=== PATIENT | female | born 1985 | race Caucasian/White ===

== ENCOUNTER 2019-08-08 05:21 | Inpatient (IN) ==
[2019-08-03 12:22] LABS: Basophils % 0.2 % (0.0-0.8); Eosinophils % 0.2 % (0.00-10.9); Hematocrit 45.9 VOL% (35.7-47.0); Hemoglobin 15.8 GM/DL (12.0-16.0); Immature Granulocytes % 0.4 %; Immature Granulocytes Absolute 0.05 #; Lymphocytes # 1.3 10*3/uL (1.4-4.0); Lymphocytes % 10.3 % (21.3-54.2); Mean Corpuscular HGB Conc 34.4 GM/DL (32-36); Mean Corpuscular Volume 96.6 FL (87-102); Mean Platelet Volume 9.8 FL (9.6-12.0); Monocytes % 3.2 % (1.7-12.7); Neutrophils % 85.7 % (38.7-73.9); Platelet Count 349 T/CUMM (130-400); Red Blood Count 4.75 MC/CUMM (3.8-5.5); Red Cell Distribution Width 13.6 % (9.3-17.3); White Blood Count 12.6 T/CUMM (4-12)
[2019-08-03 12:32] LABS: INR 0.9; Partial Thromboplastin Time 27.7 SECS (20.8-36.0)
[2019-08-03 12:38] LABS: Calcium 9.3 MG/DL (8.5-10.1); Osmolality,Calculated 276.4 MOS/KG (273-304)
[2019-08-03 13:01] LABS: Apearance,Urine CLEAR (Clear); Bilirubin,Urine Negative (Negative); Blood, Urine Negative (Negative); Glucose,Urine (UA) Negative (Negative); Ketones,Urine Negative (Negative); Nitrite,Urine Negative (Negative); Protein,Urine Negative; RBC,Urine <1 /HPF (0-4); Squamous Epithelial Cell,Urine Occasional /HPF (0-10); Urine Color Yellow (Yellow); Urine Specific Gravity 1.012 (1.001-1.035); Urine Urobilinogen < 2.0 EU/DL (0.2-1.0); WBC,Urine 3 /HPF (0-6)
[2019-08-08] MEDS ORDERED: DIAZEPAM 5 MG TABLET PO ONE (06:00)
[2019-08-08] MEDS ORDERED: GABAPENTIN 400 MG CAPSULE PO ONE (06:00)
[2019-08-08] MEDS ORDERED: FAMOTIDINE 20 MG TABLET PO ONE (06:00)
[2019-08-08] MEDS ORDERED: ceFAZolin 1,000 MG in SYRINGE 1 EACH IV ONE (06:00)
[2019-08-08] MEDS ORDERED: ceFAZolin 1,000 MG VIAL ONE (06:02)
[2019-08-08] MEDS ORDERED: FAMOTIDINE 20 MG TABLET ONE (06:23)
[2019-08-08] MEDS ORDERED: DIAZEPAM 5 MG TABLET ONE (06:23)
[2019-08-08] MEDS ORDERED: LACTATED RINGERS 1,000 ML IV SCH ×2 (06:30→08:30)
[2019-08-08] MEDS ORDERED: BENZOCAINE/MENTHOL LOZENGE 18/BOX PO PRN (08:21)
[2019-08-08] MEDS ORDERED: IBUPROFEN 800 MG TABLET PO PRN (08:21)
[2019-08-08] MEDS ORDERED: MAGNESIUM HYDROXIDE SUSP 30 ML UDCUP PO PRN (08:21)
[2019-08-08] MEDS ORDERED: ONDANSETRON 4 MG/2 ML VIAL IV PRN ×2 (08:21→08:37)
[2019-08-08] MEDS ORDERED: DOCUSATE SODIUM 100 MG CAPSULE PO PRN (08:21)
[2019-08-08] MEDS ORDERED: ACETAMINOPHEN 325 MG TABLET PO PRN (08:21)
[2019-08-08] MEDS ORDERED: BISACODYL 10 MG SUPP RECTAL PRN (08:21)
[2019-08-08] MEDS ORDERED: HYDROmorphone 2 MG/1 ML VIAL ONE (08:36)
[2019-08-08] MEDS ORDERED: ONDANSETRON 4 MG/2 ML VIAL ONE ×2 (08:36→08:45)
[2019-08-08 08:40] LABS: Apearance,Urine CLEAR (Clear); Bilirubin,Urine Negative (Negative); Blood, Urine Negative (Negative); Glucose,Urine (UA) Negative (Negative); Ketones,Urine Negative (Negative); Mucus,Urine Occasional /LPF (Occasional); Nitrite,Urine Negative (Negative); Protein,Urine Negative; RBC,Urine 1 /HPF (0-4); Squamous Epithelial Cell,Urine Occasional /HPF (0-10); Urine Color Yellow (Yellow); Urine Specific Gravity 1.008 (1.001-1.035); Urine Urobilinogen < 2.0 EU/DL (0.2-1.0); WBC,Urine <1 /HPF (0-6)
[2019-08-08] MEDS: HYDROmorphone 2 MG/1 ML VIAL IV PRN ×2 (08:40→08:45)
[2019-08-08] MEDS ORDERED: LIDOCAINE 100 MG/5 ML SYRINGE ONE (08:44)
[2019-08-08] MEDS ORDERED: PROPOFOL 200 MG/20 ML VIAL IV ONE (08:44)
[2019-08-08] MEDS ORDERED: SEVOFLURANE 1 UNIT/15 MINUTE INH ONE (08:44)
[2019-08-08] MEDS ORDERED: NEOSTIGMINE 10 MG/10 ML VIAL ONE (08:45)
[2019-08-08] MEDS ORDERED: fentaNYL 100 MCG/2 ML VIAL ONE (08:45)
[2019-08-08] MEDS ORDERED: GLYCOPYRROLATE 0.4 MG/2 ML VIAL ONE (08:45)
[2019-08-08] MEDS ORDERED: ROCURONIUM 100 MG/10 ML VIAL IV ONE (08:45)
[2019-08-08] MEDS ORDERED: DEXAMETHASONE 4 MG/1 ML VIAL ONE (08:45)
[2019-08-08] MEDS ORDERED: MIDAZOLAM 2 MG/2 ML VIAL ONE ×2 (08:45→08:50)
[2019-08-08] MEDS ORDERED: MIDAZOLAM 2 MG/2 ML VIAL IV ONE (08:49)
[2019-08-08] MEDS: ALBUTEROL/IPRATROPIUM 3 ML NEB RESP TX SCH (10:13)
[2019-08-08] MEDS ORDERED: HYDROmorphone 2 MG/1 ML VIAL IV PRN (14:17)
[2019-08-08] MEDS: ceFAZolin 1,000 MG in SYRINGE 1 EACH IV SCH ×2 (14:56→22:55)
[2019-08-09] MEDS ORDERED: ENOXAPARIN 40 MG/0.4 ML SYRINGE SUBCUT SCH (02:21)
[2019-08-09 05:31] LABS: Basophils % 0.2 % (0.0-0.8); Eosinophils % 0.1 % (0.00-10.9); Hematocrit 42.1 VOL% (35.7-47.0); Immature Granulocytes % 0.6 %; Immature Granulocytes Absolute 0.09 #; Lymphocytes # 1.8 10*3/uL (1.4-4.0); Mean Corpuscular HGB Conc 33.3 GM/DL (32-36); Mean Corpuscular Volume 97.7 FL (87-102); Mean Platelet Volume 9.8 FL (9.6-12.0); Monocytes % 4.7 % (1.7-12.7); Neutrophils % 83.4 % (38.7-73.9); Platelet Count 345 T/CUMM (130-400); Red Blood Count 4.31 MC/CUMM (3.8-5.5); Red Cell Distribution Width 13.4 % (9.3-17.3); White Blood Count 16.1 T/CUMM (4-12)
[2019-08-09] MEDS: ALBUTEROL/IPRATROPIUM 3 ML NEB RESP TX SCH ×2 (06:03→06:04)
[2019-08-09 07:23] VITALS: BP 116/69
== END 2019-08-09 08:50 | disposition home or self-care (01) | DRG 743 ==
LOC: N.SDSINP 05:21 → N.OB 10:52
PROVIDERS: ADMIT Specialist; ATTEND Specialist